=== PATIENT | male | born 1975 | race Hispanic/Latino ===

== ENCOUNTER 2024-12-02 02:06 | Emergency (ER) | payer OTHER ==
[~2024-12-02] VITALS: Ht 162.6 cm; Wt 86.2 kg
[2024-12-02] MEDS: NAPROXEN 500 MG TABLET PO ONE (02:39)
--- NOTE | 2024-12-02 03:20 | ERN ---
General Chief Complaint: Knee Injury/Swelling Stated Complaint: KNEE INJURY Time Seen by MD: 02:08 Source: patient, police History of Present Illness Initial Comments Is a 49-year-old male coming in complaining of right knee right leg pain. Per patient he has a surgery some time ago in his here because he fell down wants to be evaluated. Allergies: Coded Allergies: Penicillins (Unverified Allergy, Unknown, 12/02/24) Past Medical History Past Medical History: No Pertinent History Past Surgical History: Other Surgical History Other: RIGHT KNEE SURGERY ROS Dictation CONSTITUTIONAL: No chills, no fever, no weakness, no diaphoresis, no malaise. HEAD/FACE: No signs of trauma. EENT: No eye pain, no blurred vision, no tearing, no double vision, no ear los n, no ear discharge, no nose pain, no nasal congestion, no throat pain, no throat swelling, no mouth pain. RESPIRATORY: No cough, no orthopnea, no SOB, no stridor, no wheezing. CARDIOVASCULAR: No chest pain, no edema, no palpitations, no syncope. GASTROINTESTINAL/ABDOMINAL: No abdominal pain, no constipation, no diarrhea, no nausea, no vomiting. GENITOURINARY: No abnormal discharge, no dysuria, no frequent urination, no hematuria. No complaints of pain in the genitals. MUSCULOSKELETAL: No back pain, no gout, joint pain, no joint swelling, muscle pain, no muscle stiffness, no neck pain. INTEGUMENTARY: No change in color, no change in hair/nails, no dryness, no lesion, no lumps, no rash. NEUROLOGICAL/PSYCH: No anxiety, not depressed, no emotional problem, no headache, no numbness, no pre-existing deficit, no history of seizures, no tremors, no weakness. HEMATOLOGIC/LYMPHATIC: Not anemic, no history of blood clots, no apparent bleeding, no bruising, glands not swollen. All Systems Negative, Except as Noted. Physical Exam Physical Exam Dictation VITAL SIGNS: Reviewed. GENERAL APPEARANCE: Alert, oriented x3, no acute distress, obese. HEAD AND FACE: Non-traumatic. EYES: PERRL, pink conjunctivas, eyelid no trauma, anterior chamber clear. EARS: Pinnas intact and no signs of trauma or erythema. Ear canals clear and no discharge. TMs no erythema. NOSE: No discharge, no bleeding. OROPHARYNX: Mouth normal, teeth no caries, tongue pink. Pharynx clear, no ez thema. Tonsils no exudates, no abscesses noted. Mucous membrane moist. NECK: Supple, non-tender, no thyromegaly, no masses, no JVD, no bruits. BREAST: Deferred. CHEST: No tenderness, no crepitus, no paradoxical movement, no retractions. LUNGS: Clear, well-ventilated, symmetric, no rales, no wheezing, no rhonchi, no stridor, good breath sounds bilaterally. HEART: Regular rate, regular rhythm, no murmur, no gallops. VASCULAR: No peripheral edema. ABDOMEN: Soft, positive bowel sounds, nondistended, no guarding, nontender, no rebound, no masses no hepatomegaly, no splenomegaly, no Marina's sign, no hernias. RECTAL: Deferred. GENITAL: Deferred. NEUROLOGICAL: Normal speech, gross motor function intact, gross sensory function intact. MUSCULOSKELETAL: Neck nontender, full range of motion, back nontender, full range of motion. EXTREMITIES: Nontender, full range of motion. Right extremity tenderness on palpation SKIN: Color pink, dry, no turgor, no rash, no lacerations, no abrasions, no contusions. LYMPHATICS: Deferred. Results Laboratory and Microbiology Labs Reviewed?: Yes EKG/XRAY/US/CT/MRI X-RAY Comment X-ray right femur- hardware in place [facility] MDM: Differential diagnosis: Fall, right knee contusion, previous surgery Rationale: Tests considered and ordered secondary to shared decision making include: Previous outside records reviewed: Old ER visits. Risk of complication and/or morbidity or mortality of patient management: None Medications-Per medication reconciliation Need for hospitalization: Patient does not meet criteria for hospitalization. Need for emergency major/minor surgery: No Patient is a 49-year-old male coming in complaining of leg pain. Patient states he tripped earlier today and wants to have his leg evaluated because he had a surgical repair of the femur in the past. X-ray did not disclose acute findings. Patient will be discharged in stable condition with a diagnosis of right leg discomfort right knee contusion. ED Course Orders Procedure Category Date Status Time Knee 3vws Rt RAD 12/02/24 Logged 02:11 Naproxen (Naprosyn) PHA 12/02/24 Complete 02:30 Current Medications Medications (Trade) Dose Ordered Sig/Priscila Route PRN Reason Start Time Stop Time Status Last Admin Dose Admin Naproxen (Naprosyn) 500 mg ONCE ONCE PO 12/02/24 02:30 12/02/24 02:31 DC 12/02/24 02:39 Vital Signs Date Time Temp Pulse Resp B/P (MAP) Pulse Ox O2 Delivery O2 Flow Rate FiO2 12/02/24 02:08 98.2 92 18 110/70 100 Room Air 0 DX & DISP Disposition: Discharge Departure Impression: Primary Impression: Contusion of right knee Condition: Stable Additional Instructions: FOLLOW-UP WITH PRIMARY CARE PROVIDER IN 1 TO 2 DAYS. TAKE MEDICATIONS DIRECTED HERE IN THE EMERGENCY ROOM. OKAY TO CONTINUE HOME MEDICATIONS UNLESS OTHERWISE DISCUSSED DURING YOUR VISIT IN THE EMERGENCY ROOM TODAY. RETURN TO YOUR NEAREST EMERGENCY ROOM IF SYMPTOMS WORSEN OR IF THERE IS NO IMPROVEMENT. CALL 911 IF YOU NEED IMMEDIATE ASSISTANCE. TAKE TYLENOL [id number] N EEDED AND IF NO CONTRAINDICATIONS ARE PRESENT. INCREASE ORAL HYDRATION. A WOUND CULTURE OR URINE CULTURE WAS ORDERED HERE IN THE EMERGENCY ROOM DEPARTMENT PLEASE FOLLOW-UP WITH PRIMARY CARE PROVIDER AND ADVISE THEM TO GET REPORTS FROM OUR FACILITY. IF YOU HAD ANY GEOVANNI WRAP/SPLINTS THAT WERE APPLIED HERE, PLEASE DO NOT REMOVE THEM UNTIL YOU SEE YOUR PRIMARY CARE OR SPECIALTY. Referrals: Referrals: SELF,REFERRAL (PCP) BRAULIO CHAPMAN MD, LUIS A MD Time of Disposition: 03:19 DEVIN PATIÑO MD Dec 02, 2024 03:19
--- NOTE | 2024-12-02 04:01 | HMCIMG ---
EXAM: CR Right Femur, 4 views. CLINICAL HISTORY: Fall. COMPARISON: None provided. FINDINGS: No acute fracture or aggressively appearing osseous lesion. Internally fixed old healed distal femoral diaphysis fracture with a metallic plate and screws in place; the distal segment is mildly tilted medially. Mild osteopenia. The included right hip and knee joints are within normal limits. Grossly unremarkable soft tissue. IMPRESSION: No acute fracture or aggressively appearing osseous lesion. Internally fixed old healed distal femoral diaphysis fracture with a metallic plate and screws in place; the distal segment is mildly tilted medially. Mild osteopenia. /Triplett
--- NOTE | 2024-12-02 04:30 | NUR ---
daly bandage to right knee
[2024-12-02 04:41] VITALS: BP 112/74; PULSE 88; RESP 16; TEMP 98.1; O2SAT 99
== END 2024-12-02 04:43 ==
LOC: EEVIPCON 02:06 → EDH 02:06
DX: S80.01XA Contusion of right knee, initial encounter (principal); Z88.0 Allergy status to penicillin; W18.39XA Other fall on same level, initial encounter; Y93.89 Activity, other specified; Y92.89 Other specified places as the place of occurrence of the external cause; Y99.8 Other external cause status
CPT/HCPCS: 73552; 73562; 99283; 99284